=== PATIENT | female | born 1985 | race Caucasian/White ===

== ENCOUNTER 2020-01-05 23:04 | Emergency (ER) | payer SELFPAY ==
[2020-01-05 23:05] VITALS: BP 118/82; PULSE 96; RESP 18; TEMP 36.4; O2SAT 97; BMI 27.4
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
[2020-01-05] MEDS: Ondansetron 4 MG/2 ML Vial IV (23:41)
[2020-01-05] MEDS: Morphine 4 MG/ML Syringe IV (23:42)
[2020-01-06 00:41] VITALS: BP 116/78; PULSE 85; RESP 18; O2SAT 96
== END 2020-01-06 00:43 | disposition home or self-care (01) ==
PROVIDERS: Emergency Provider Emergency Medicine
DX: S20.222A Contusion of left back wall of thorax, initial encounter (principal); F17.200 Nicotine dependence, unspecified, uncomplicated; W01.0XXA Fall on same level from slipping, tripping and stumbling without subsequent striking against object, initial encounter
CPT/HCPCS: 96374; 96375; 99283; A4216; J2405

== ENCOUNTER 2020-09-05 21:00 | Emergency (ER) | payer SELFPAY ==
[2020-09-05 21:00] VITALS: BP 164/120; PULSE 116; RESP 15; TEMP 35.9; O2SAT 97; BMI 24.7
--- NOTE | 2020-09-05 21:25 | ED.VIS.GEN ---
History of Present Illness Chief Complaint: Itching Informant: Patient Narrative: 35-year-old female presenting with rash on her arms, legs, chest, abdomen, back. She states that she picked up a dog that she believes had mange. She states after this she started to have itching all over her body. States that she is having no other contact with anything else that would make her itch. She states she has kids at home and none of them have rash. Patient states that she has been scratching vigorously since and has bruising as well as rash on her legs. Patient tried Benadryl and calamine lotion but states that it is getting worse. Past Medical History - Allergies and Home Meds Allergies/Adverse Reactions: Allergies ketorolac tromethamine [From Toradol] Adverse Reaction (Verified 09/05/20 21:06) Nausea/Vom/Diarrhea RASH morphine Adverse Reaction (Verified 09/05/20 21:06) Upset Stomach maloxican Allergy (Uncoded 06/10/15 06:21) Hives is a muscle relaxant she took Primary Care Physician: Care Physician,No Primary [Primary Care Provider] - Prior records reviewed: Yes Past Medical History: None Surgical History: noncontributory Lives: With Family Smoking Status: Current every day smoker Alcohol: None Drugs: None Review of Systems General: Denies: Chills, Fever, Sweats Eyes: Denies: Visual changes - bilaterally, Diplopia ENT: Denies: Rhinorrhea, Sore throat Cardiovascular: Denies: Chest pain, Palpitations Respiratory: Denies: Dyspnea, Cough, Dyspnea on exertion Gastrointestinal: Denies: Abdominal pain, Nausea, Vomiting, Diarrhea, Melena, Hematochezia Genitourinary: Denies: Dysuria, Hematuria, Frequency Musculoskeletal: Reports: Myalgias. Denies: Arthralgias, Neck pain Skin: Reports: Rash, Abrasions. Denies: Abscess Neurological: Denies: Headache, Weakness, Numbness Physical Exam Vital Signs/Narrative: Vital Signs Temp Pulse Resp BP Pulse Ox 09/05/20 21:00 96.6 F L 116 H 15 164/120 H 97 General: Well nourished, No Acute Distress Head: Normocephalic, Atraumatic Eyes: Perrl, EOMI ENT: Moist mucous membranes, Sinus tenderness Cardiovascular: Regular rate, Regular rhythm Respiratory: No distress, CTA bilaterally Extremities: No edema. Negative for: Calf Tenderness Skin: Rash - Patient has nonspecific dermatitis on chest, abdomen, back, lower extremities, arms. There are linear bruising and scratching patterns where the patient has been scratching. Neurological: Alert, Oriented x3 Psychological: Tearful, Agitated Diagnostic/Tx/Re-eval - Medical Decision Making Patient presents with rash which she is concerned is mange. Patient also has bruising and scratches but there does not appear to be any cellulitis on her body. Patient will be treated with prednisone taper. She was given 1 oxycodone here as she states that where she has been scratching is hurting. Patient has Benadryl at home and will take this to help with itching. Patient will be given permethrin cream to use for the next 7 days. She is counseled to follow-up with her PCP to ensure resolution. She is given return precautions. Impression: 1. Dermatitis ED Disposition - Plan for ED Patient: Disposition: Home or Assisted Living Instructions: ED Contact Dermatitis Referrals: Care Physician,No Primary [Primary Care Provider] -
[2020-09-05] MEDS: oxyCODONE 5 MG Tablet PO (21:34)
[2020-09-05] MEDS: predniSONE 20 MG Tablet 60 MG PO (21:34)
== END 2020-09-05 21:48 | disposition home or self-care (01) ==
LOC: ED 21:44
PROVIDERS: Emergency Provider Student in an Organized Health Care Education/Training Program
DX: L30.9 Dermatitis, unspecified (principal); F17.200 Nicotine dependence, unspecified, uncomplicated
CPT/HCPCS: 99283